=== PATIENT | male | born 1935 | race Caucasian/White ===

== ENCOUNTER 2018-03-14 15:34 | Emergency (ER) | payer OTHER ==
[2018-03-14 16:29] LABS: Absolute Lymphocytes (CBC) 1.2 K/uL (0.7-4.9); Absolute Monocytes 0.9 K/uL (0.1-1.3); Absolute Neutrophil 5.1 K/uL (1.8-8.0); Basophils % 0.5 % (0-1.3); Eosinophils % 0.6 % (0-4.4); Hematocrit 40.7 % (39.6-49.0); Lymphocytes % 16.4 % (15.3-44.8); MCH 31.3 pg (27.0-35.0); MCV 92.3 fL (80-100); MPV 7.5 fL (7.6-11.3); Monocytes % 12.6 % (3.3-12.3); RBC Red Blood Cell Count 4.41 M/uL (4.33-5.43)
[2018-03-14 16:34] LABS: Protime INR 1.95
[2018-03-14 16:43] LABS: ALT/SGPT 26 U/L (12-78); AST/SGOT 30 U/L (15-37); Albumin 3.7 g/dL (3.4-5.0); Alkaline Phosphatase 85 U/L (45-117); BUN Blood Urea Nitrogen 13 mg/dL (7-18); Bicarbonate 26 mmol/L (21-32); Bilirubin Direct 0.4 mg/dL (0-0.2); Bilirubin Total 1.6 mg/dL (0.2-1.0); Glucose Level 100 mg/dL (74-106); Magnesium 2.1 mg/dL (1.8-2.4); NT PRO-BNP 1962 pg/mL (<450); Potassium 4.2 mmol/L (3.5-5.1); Protein, Total 7.9 g/dL (6.4-8.2); Sodium Level 139 mmol/L (136-145); Troponin (Emerg Dept Use Only) < 0.02 ng/mL (0.0-0.045)
--- NOTE | 2018-03-14 17:13 | RAD REPORT ---
EXAM DESCRIPTION: RAD - Chest Single View - 03/14/2018 4:17 pm CLINICAL HISTORY: Chest pain, shortness of breath, history of atrial fibrillation COMPARISON: June 02 TECHNIQUE: AP portable chest image was obtained 1601 hours . FINDINGS: Patient has chronic interstitial lung disease. Patchy interstitial and alveolar opacificat ion in the mid left lung field present. This could be a mild pneumonia. Finding may also reflect scar ring from a large pneumonia that was present back in May. Emphysema changes are present in the le ft apex. New focal opacification in the lower right lung field present. A new right base pneumonia is suspected. Heart size is stable from comparison. No acute vascular engorgement. No pneumothorax or large pleura l effusion. No acute bony abnormality seen. No acute aortic findings suspected. IMPRESSION: New right lung base opacification suspicious for acute pneumonia. Left midlung field opacification may be a new minimal pneumonia or represents scarring from the pneum onia present back in May.
--- NOTE | 2018-03-14 17:45 | EDPHYS ---
Physician Documentation [facility] Name: Francois Ayala Jr Age: 83 yrs Sex: Male : 1935 Arrival Date: 03/14/2018 Time: 15:36 Bed 7 Private MD: ED Physician Lee Monreal HPI: 03/14 16:52 This 83 yrs old Male presents to ER via Ambulatory with complaints of kdr Palpitations - slow HR. 16:52 The patient presents with a history of irregular heart beat, Feels like his heart is kdr slowing and then speeding back up to normal rate. Just feeling poorly today. Thinks he may have the flu coming on.. Context: The symptoms occur at rest, with anxiety. Onset: The symptoms/episode began/occurred suddenly, just prior to arrival. Duration: The patient or guardian reports multiple episodes, that are intermittent, that wax and wane, with no pattern. Modifying factors: The symptoms are aggravated by nothing. The symptoms are alleviated by nothing. Associated signs and symptoms: Pertinent positives: nausea, SOB, Pertinent negatives: anxiety, chest pain, cough, fever, lightheadedness, syncope. Severity of symptoms: At their worst the symptoms were mild in the emergency department the symptoms have improved mildly. The patient has not experienced similar symptoms in the past. The patient has been recently seen by a physician: the patient's primary care provider. Historical: - Allergies: 15:48 Codeine; la1 15:48 guafenasin; la1 15:48 Sulfa (Sulfonamide Antibiotics); la1 - Home Meds: 16:09 Vitamin C 1,000 mg Oral tab [Active]; Vitamin D Oral 2000 mg [Active]; Mucinex 600 mg tw2 oral Ta12 1 tab every 12 hours [Active]; Nesha 180 mg Oral tab 1 tab once daily [Active]; amlodipine 10 mg tab 1 tab once daily [Active]; Metoprolol Tartrate 60 mg Oral [Active]; zolpidem 10 mg Oral tab 1 tab once daily [Active]; Xarelto 20 mg oral tab 1 tab once daily [Active]; - PMHx: 15:48 Atrial Fib; Hypertension; Lung CA; la1 - Immunization history:: Adult Immunizations up to date. - Social history:: Smoking status: Patient/guardian denies using tobacco. - Ebola Screening: : No symptoms or risks identified at this time. ROS: 16:52 Constitutional: Negative for fever, chills, and weight loss, Eyes: Negative for injury, kdr pain, redness, and discharge, Neck: Negative for injury, pain, and swelling, Abdomen/GI: Negative for abdominal pain, nausea, vomiting, diarrhea, and constipation, Back: Negative for injury and pain, : Negative for injury, bleeding, discharge, and swelling, MS/Extremity: Negative for injury and deformity, Skin: Negative for injury, rash, and discoloration, Neuro: Negative for headache, weakness, numbness, tingling, and seizure activity. Psych: Negative for depression, anxiety, suicide ideation, homicidal ideation, and hallucinations, Allergy/Immunology: Negative for hives, rash, and allergies, Endocrine: Negative for neck swelling, polydipsia, polyuria, polyphagia, and marked weight changes, Hematologic/Lymphatic: Negative for swollen nodes, abnormal bleeding, and unusual bruising. 16:52 Cardiovascular: Positive for palpitations, Negative for chest pain, edema, orthopnea, paroxysmal nocturnal dyspnea. 16:52 Respiratory: Positive for Dyspnea, Negative for hemoptysis, orthopnea, pleurisy, sputum production, wheezing. Exam: 16:52 Constitutional: This is a well developed, well nourished patient who is awake, alert, kdr and in no acute distress. Head/Face: Normocephalic, atraumatic. Eyes: Pupils equal round and reactive to light, extra-ocular motions intact. Lids and lashes normal. Conjunctiva and sclera are non-icteric and not injected. Cornea within normal limits. Periorbital areas with no swelling, redness, or edema. Neck: Trachea midline, no thyromegaly or masses palpated, and no cervical lymphadenopathy. Supple, full range of motion without nuchal rigidity, or vertebral point tenderness. No Meningismus. Chest/axilla: Normal chest wall appearance and motion. Nontender with no deformity. No lesions are appreciated. Cardiovascular: Regular rate and rhythm with a normal S1 and S2. No gallops, murmurs, or rubs. Normal PMI, no JVD. No pulse deficits. Abdomen/GI: Soft, non-tender, with normal bowel sounds. No distension or tympany. No guarding or rebound. No evidence of tenderness throughout. Back: No spinal tenderness. No costovertebral tenderness. Full range of motion. Skin: Warm, dry with normal turgor. Normal color with no rashes, no lesions, and no evidence of cellulitis. MS/ Extremity: Pulses equal, no cyanosis. Neurovascular intact. Full, normal range of motion. Neuro: Awake and alert, GCS 15, oriented to person, place, time, and situation. Cranial nerves II-XII grossly intact. Motor strength 5/5 in all extremities. Sensory grossly intact. Cerebellar exam normal. Normal gait. Psych: Awake, alert, with orientation to person, place and time. Behavior, mood, and affect are within normal limits. 16:52 Respiratory: the patient does not display signs of respiratory distress, Respirations: normal, Breath sounds: rales, that are mild, are located in both bases, Respiratory rate: 16 Vital Signs: 15:48 BP 145 / 84; Pulse 75; Resp 16; Temp 97.3; Pulse Ox 98% on R/A; Weight 72.57 kg; Height la1 5 ft. 6 in. (167.64 cm); 16:40 BP 135 / 82; Pulse 72; Resp 16; Pulse Ox 99% on R/A; tw2 17:22 BP 139 / 65; Pulse 81; Resp 18; Pulse Ox 100% on R/A; tw2 18:05 BP 148 / 78; Pulse 65; Resp 17; Pulse Ox 99% on R/A; Pain 0/10; tw2 15:48 Body Mass Index 25.82 (72.57 kg, 167.64 cm) la1 MDM: 17:45 Patient medically screened. kdr 18:55 Data reviewed: vital signs, nurses notes, lab test result(s), radiologic studies. kdr Counseling: I had a detailed discussion with the patient and/or guardian regarding: the historical points, exam findings, and any diagnostic results supporting the discharge/admit diagnosis, lab results, radiology results, the need for outpatient follow up. ED course: The patient refused to be admitted here or elsewhere. He had had a terrible experience on his last admission in [facility]. 03/14 16:09 Order name: Basic Metabolic Panel; Complete Time: 17:27 tw2 03/14 16:09 Order name: CBC with Diff; Complete Time: 17:27 tw2 03/14 16:09 Order name: LFT's; Complete Time: 17:27 tw2 03/14 16:09 Order name: Magnesium; Complete Time: 17:27 tw2 03/14 16:09 Order name: NT PRO-BNP; Complete Time: 17:27 tw2 03/14 16:09 Order name: PT-INR; Complete Time: 17:27 tw2 03/14 16:09 Order name: Troponin (emerg Dept Use Only); Complete Time: 17:27 tw2 03/14 16:09 Order name: XRAY Chest (1 view); Complete Time: 17:27 tw2 03/14 16:09 Order name: EKG; Complete Time: 16:10 tw2 03/14 16:09 Order name: Cardiac monitoring; Complete Time: 16:10 tw2 03/14 16:09 Order name: EKG - Nurse/Tech; Complete Time: 16:10 tw2 03/14 16:09 Order name: IV Saline Lock; Complete Time: 16:10 tw2 03/14 16:09 Order name: Labs collected and sent; Complete Time: 16:10 tw2 03/14 16:09 Order name: O2 Per Protocol; Complete Time: 16:10 tw2 03/14 16:09 Order name: O2 Sat Monitoring; Complete Time: 16:10 tw2 03/14 16:13 Order name: Cardiac monitoring; Complete Time: 16:18 kdr 03/14 16:13 Order name: EKG - Nurse/Tech; Complete Time: 16:18 kdr 03/14 16:13 Order name: IV Saline Lock; Complete Time: 16:19 kdr 03/14 16:13 Order name: Labs collected and sent; Complete Time: 16:19 kdr 03/14 16:13 Order name: O2 Per Protocol; Complete Time: 16:20 kdr 03/14 16:13 Order name: O2 Sat Monitoring; Complete Time: 16:23 kdr Administered Medications: 17:48 Drug: LevaQUIN 500 mg Route: PO; tw2 18:05 Follow up: Response: No adverse reaction tw2 Disposition: 03/14/18 17:45 Discharged to Home. Impression: Pneumonia, unspecified organism. - Condition is Stable. - Discharge Instructions: Community-Acquired Pneumonia, Adult, [id number]. - Prescriptions for Levaquin 500 mg Oral Tablet - take 1 tablet by ORAL route once daily for 10 days; 10 tablet. - Medication Reconciliation Form, Thank You Letter, Antibiotic Education form. - Follow up: Private Physician; When: 2 - 3 days; Reason: If symptoms return, Further diagnostic work-up, Recheck today's complaints, Continuance of care, Re-evaluation by your physician. - Problem is new. - Symptoms have improved. Signatures: Dispatcher [employer] [facility] Lee Monreal MD MD kdr Mitch Lazaro RN RN la1 Jaclyn Cedeño RN RN tw2 Corrections: (The following items were deleted from the chart) 16:16 16:14 Chest Single View+RAD.RAD.BRZ ordered. [facility] EDKY 18:06 17:45 03/14/2018 17:45 Discharged to Home. Impression: Pneumonia, unspecified organism. tw2 Condition is Stable. Forms are Medication Reconciliation Form, Thank You Letter, Antibiotic Education, Prescription Opioid Use. Follow up: Private Physician; When: 2 - 3 days; Reason: If symptoms return, Further diagnostic work-up, Recheck today's complaints, Continuance of care, Re-evaluation by your physician. Problem is new. Symptoms have improved. kdr
--- NOTE | 2018-03-14 17:45 | ER ---
Nurse's Notes [facility] Name: Francois Ayala Jr Age: 83 yrs Sex: Male : 1935 Arrival Date: 03/14/2018 Time: 15:36 Bed 7 Private MD: Diagnosis: Pneumonia, unspecified organism Presentation: 03/14 15:46 Presenting complaint: Patient states: I have A fib but I feel like its different now la1 and I also have been feeling more SOB than normal and lower back pain. Transition of care: patient was not received from another setting of care. Onset of symptoms was March 14, 2018. Risk Assessment: Do you want to hurt yourself or someone else? Patient reports no desire to harm self or others. Initial Sepsis Screen: Does the patient meet any 2 criteria? No. Patient's initial sepsis screen is negative. Does the patient have a suspected source of infection? No. Patient's initial sepsis screen is negative. Care prior to arrival: None. 15:46 Method Of Arrival: Ambulatory la1 15:46 Acuity: RACHEL 3 la1 Historical: - Allergies: 15:48 Codeine; la1 15:48 guafenasin; la1 15:48 Sulfa (Sulfonamide Antibiotics); la1 - Home Meds: 16:09 Vitamin C 1,000 mg Oral tab [Active]; Vitamin D Oral 2000 mg [Active]; Mucinex 600 mg tw2 oral Ta12 1 tab every 12 hours [Active]; Nesha 180 mg Oral tab 1 tab once daily [Active]; amlodipine 10 mg tab 1 tab once daily [Active]; Metoprolol Tartrate 60 mg Oral [Active]; zolpidem 10 mg Oral tab 1 tab once daily [Active]; Xarelto 20 mg oral tab 1 tab once daily [Active]; - PMHx: 15:48 Atrial Fib; Hypertension; Lung CA; la1 - Immunization history:: Adult Immunizations up to date. - Social history:: Smoking status: Patient/guardian denies using tobacco. - Ebola Screening: : No symptoms or risks identified at this time. Screenin:06 Abuse screen: Denies threats or abuse. Nutritional screening: No deficits noted. tw2 Tuberculosis screening: No symptoms or risk factors identified. Fall Risk None identified. Assessment: 16:03 General: Appears in no apparent distress. slender, well groomed, Behavior is calm, tw2 cooperative, appropriate for age. Pain: Denies pain. Neuro: Level of Consciousness is awake, alert, obeys commands, Oriented to person, place, time, situation. Cardiovascular: Reports shortness of breath, Denies chest pain, Heart tones S1 S2 Capillary refill < 3 seconds Patient's skin is warm and dry. Respiratory: Airway is patent Respiratory effort is even, labored, with retractions, Respiratory pattern is regular. GI: Abdomen is flat, Bowel sounds present X 4 quads. : No signs and/or symptoms were reported regarding the genitourinary system. EENT: No signs and/or symptoms were reported regarding the EENT system. Derm: No signs and/or symptoms reported regarding the dermatologic system. Musculoskeletal: Circulation, motion, and sensation intact. Range of motion: intact in all extremities. 16:40 Reassessment: Patient appears in no apparent distress at this time. No changes from tw2 previously documented assessment. Patient and/or family updated on plan of care and expected duration. Pain level reassessed. Patient is alert, oriented x 3, equal unlabored respirations, skin warm/dry/pink. 17:22 Reassessment: Patient appears in no apparent distress at this time. No changes from tw2 previously documented assessment. Patient and/or family updated on plan of care and expected duration. Pain level reassessed. Patient is alert, oriented x 3, equal unlabored respirations, skin warm/dry/pink. Vital Signs: 15:48 BP 145 / 84; Pulse 75; Resp 16; Temp 97.3; Pulse Ox 98% on R/A; Weight 72.57 kg; Height la1 5 ft. 6 in. (167.64 cm); 16:40 BP 135 / 82; Pulse 72; Resp 16; Pulse Ox 99% on R/A; tw2 17:22 BP 139 / 65; Pulse 81; Resp 18; Pulse Ox 100% on R/A; tw2 18:05 BP 148 / 78; Pulse 65; Resp 17; Pulse Ox 99% on R/A; Pain 0/10; tw2 15:48 Body Mass Index 25.82 (72.57 kg, 167.64 cm) la1 ED Course: 15:36 Patient arrived in ED. as 15:46 Lee Monreal MD is Attending Physician. kdr 15:47 Triage completed. la1 15:48 Arm band placed on right wrist. la1 15:50 Placed in gown. Bed in low position. Adult w/ patient. school lunch monitor on. Pulse ox on. tw2 NIBP on. Warm blanket given. 15:52 Jaclyn Cedeño, RN is Primary Nurse. tw2 15:58 EKG done, by ED staff, reviewed by Lee Monreal MD. dh3 16:03 Inserted saline lock: 20 gauge in right antecubital area, using aseptic technique. tw2 Blood collected. 16:17 XRAY Chest (1 view) In Process Unspecified. EDMS 18:06 No provider procedures requiring assistance completed. IV discontinued, intact, tw2 bleeding controlled, No redness/swelling at site. Pressure dressing applied. Administered Medications: 17:48 Drug: LevaQUIN 500 mg Route: PO; tw2 18:05 Follow up: Response: No adverse reaction tw2 Outcome: 17:45 Discharge ordered by . kdr 18:06 Discharged to home ambulatory, with significant other. tw2 18:06 Condition: stable 18:06 Discharge instructions given to patient, significant other, Instructed on discharge instructions, follow up and referral plans. medication usage, Demonstrated understanding of instructions, follow-up care, medications, Prescriptions given X 1. 18:06 Patient left the ED. tw2 Signatures: Dispatcher [employer] EDDE Lee Monreal MD MD kdr Shell Sullivan Lee RN RN la1 Jaclyn Cedeño, DAYANA RN tw2 Phuong Simmons 3
[2018-03-14] MEDS ORDERED: levoFLOXacin 500 MG TAB ONE (17:53)
[2018-03-14 18:31] VITALS: TEMP 97.3
[2018-03-14 18:34] VITALS: BP 148/78; O2SAT 99
--- NOTE | 2018-03-15 06:52 | EKG ---
Test Date: 2018-03-14 Test Time: 16:56:51 Data Integrity Specialist: CARO MEASUREMENT RESULTS: Intervals: Rate: 77 TN: QRSD: 88 QT: 414 QTc: 468 [place]: P: TN: QRS: -23 T: 77 INTERPRETIVE STATEMENTS: Atrial fibrillation Cannot rule out septal infarct, age undetermined Abnormal ECG Compared to ECG 05/31/2017 15:28:40 Possible myocardial infarct finding now present Left-axis deviation no longer present Electronically Signed On 03-15-18 06:52:31 SCIENCE WRITER by Adan Pettit
== END 2018-03-14 18:06 | disposition home or self-care (01) ==
LOC: ER 15:34
DX: J18.9 Pneumonia, unspecified organism (principal); I10 Essential (primary) hypertension; I48.91 Unspecified atrial fibrillation; Z79.01 Long term (current) use of anticoagulants; Z88.2 Allergy status to sulfonamides; Z88.5 Allergy status to narcotic agent; Z88.8 Allergy status to other drugs, medicaments and biological substances; Z85.118 Personal history of other malignant neoplasm of bronchus and lung
CPT/HCPCS: 36415; 71045; 80048; 80076; 83735; 83880; 84484; 85025; 85610; 93005; 99285